=== PATIENT | female | born 1975 | race Caucasian/White ===

== ENCOUNTER 2025-02-14 17:34 | Emergency (ER) | payer OTHER ==
[~2025-02-14] VITALS: Ht 165.1 cm; Wt 65.0 kg
[2025-02-14 17:38] VITALS: PULSE 93; RESP 24; TEMP 97.5
[2025-02-14] MEDS: Morphine 4mg INJECTION 4 MG/ML INJ IV ONE ×2 (18:35→18:42)
[2025-02-14] MEDS: SODIUM CHLORIDE 0.9% 1000ML 1,000 ML IV ONE (18:35)
[2025-02-14] MEDS: DIPHENHYDRAMINE HCL INJ 50 MG/ML VIAL IV ONE (18:42)
[2025-02-14] MEDS ORDERED: KETOROLAC TROMETHAMINE 30 MG/ML VIAL ONE (18:54)
[2025-02-14] MEDS: KETOROLAC TROMETHAMINE 30 MG/ML VIAL IV STA (19:02)
[2025-02-14] MEDS ORDERED: IOPAMIDOL 370 MG/ML 100 ML INFUS..BTL INJ ONE (19:47)
[2025-02-14] MEDS ORDERED: HYDROCODON-ACE1 EA11 PO (22:44)
[2025-02-14 23:21] VITALS: BP 168/98; PULSE 89; RESP 18; TEMP 98; O2SAT 100
== END 2025-02-14 23:21 | disposition home or self-care (01) ==
LOC: FSED 17:48
DX: R10.11 Right upper quadrant pain (principal); N63.20 Unspecified lump in the left breast, unspecified quadrant; R16.0 Hepatomegaly, not elsewhere classified; R59.0 Localized enlarged lymph nodes
CPT/HCPCS: 71260; 74177; 80048; 80076; 81003; 81025; 84484; 85025; 93005; 99284; J1200; J1885; J2270; J7030; Q9967